=== PATIENT | female | born 1975 | race Caucasian/White ===

== ENCOUNTER 2016-05-28 17:57 | Emergency (ER) | payer OTHER ==
[~2016-05-28] VITALS: Ht 170.2 cm; Wt 85.0 kg
[2016-05-28 18:02] VITALS: BP 131/78; PULSE 101; RESP 15; TEMP 98.2; O2SAT 98
[2016-05-28] MEDS ORDERED: BENA25TA3 PO (19:27)
[2016-05-28] MEDS ORDERED: METF1000 PO (19:27)
--- NOTE | 2016-05-28 19:49 | PD ---
HPI Chief Complaint: Related Problem Time Seen by Provider: 19:49 Travel History International Travel<30 days: No Contact w/Intl Traveler<30days: No Traveled to known affect area: No History of Present Illness HPI 40-year-old female presents to the emergency Department with complaint of extensive vaginal bleeding that started this morning. She is 8 weeks and she has been having spotting since Monday. This is her second and her last ended in miscarriage at approximately 2 months. Reports abdominal cramping that started this morning. Reports nausea but is unchanged from nausea during . Reports dizziness with standing. Denies dysuria. She had an ultrasound last Monday while she was in [facility] with a positive heartbeat and positive intrauterine . She was not having any problems at that time, she just wanted to have the baby checked out and make sure that everything was going well. 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 Barton, in [place]. She has not taken any medications to alleviate pain. Has history of PCO as. Is on metformin. Allergies to milk. Primary care provider is Dr. Nery Veliz in [place]. No other modifying factors or associated signs and symptoms. PFSH Past Medical History Diminished Hearing: No Medical other: Yes (PCOS) ?: LMP: 8 weeks ago Dilation and Curettage (D&C): Yes Past Surgical History Cholecystectomy: Yes Oral Surgery: Yes Family History Family Hypercholesterolemia: Yes (dad) Social History Alcohol Use: No Tobacco Use: No (quit 19 yrs ago) Substance Use: No Allergies-Medications (Allergen,Severity, Reaction): Coded Allergies: Milk (Verified Adverse Reaction, Intermediate, itchy, watery eyes, 05/28/16 ) Reported Meds & Prescriptions Reported Meds & Active Scripts Active Reported Benadryl Allergy (Diphenhydramine HCl) 25 Mg Tab 25 Mg PO DAILY PRN Metformin (Metformin HCl) 1,000 Mg Tab 1,000 Mg PO DAILY With a meal Review of Systems Except as stated in HPI: all other systems reviewed are Neg Physical Exam Narrative GENERAL: Well-nourished, well-developed female patient, in no acute distress SKIN: Warm and dry. HEAD: Atraumatic. Normocephalic. EYES: Pupils equal and round. No scleral icterus. No injection or drainage. ENT: Mucosa pink and moist. Airway patent. NECK: Trachea midline. CARDIOVASCULAR: Regular rate and rhythm. No murmur appreciated. RESPIRATORY: No accessory muscle use. Clear to auscultation. Breath sounds equal bilaterally. GASTROINTESTINAL: Abdomen soft, non-tender, nondistended. Hepatic and splenic margins not palpable. Bowel sounds are active 4 quadrants. PELVIC: Speculum exam reveals as open cervical os with large amount of dark red vaginal bleeding. Bimanual exam reveals open cervical os. MUSCULOSKELETAL: No obvious deformities. No clubbing. No cyanosis. No edema. NEUROLOGICAL: Awake and alert. Oriented 3. No obvious cranial nerve deficits. Motor grossly within normal limits. Normal speech. PSYCHIATRIC: Appropriate mood and affect; insight and judgment normal. Data Data Last Documented VS Vital Signs Date Time Temp Pulse Resp B/P Pulse Ox O2 Delivery O2 Flow Rate FiO2 05/28/16 18:02 98.2 101 15 131/78 98 Orders Complete Blood Count With Diff (05/28/16 19:38) Basic Metabolic Panel (Bmp) (05/28/16 19:38) Beta Hcg (Quant/Titer) (05/28/16 19:38) Urinalysis - C+S If Indicated (05/28/16 19:38) Ed Poc Ultrasound (05/28/16 ) Type And Screen (05/28/16 19:40) Us Pelvis (Ques Pr/Ect)W Trans (05/28/16 ) Sodium Chlor 0.9% 1000 Ml Inj (Ns 1000 M (05/28/16 20:45) MDM Medical Decision Making Medical Screen Exam Complete: Yes Emergency Medical Condition: Yes Medical Record Reviewed: Yes Differential Diagnosis Threatened miscarriage, miscarriage, vaginal bleeding Narrative Course 40-year-old female, 8 weeks , with vaginal bleeding. She started spotting on Monday. Excessive bleeding this morning. Second ; first ended in miscarriage. After the patient a medication for pain and nausea and she declined at this time. CBC, BMP, beta hCG, type and screen, urinalysis, ED urine , ED [id number] ultrasound ordered. 2100: Dr. Vogel assumed patient care at this time. See her note for final disposition. Stella Collier May 28, 2016 19:49
[2016-05-28] MEDS ORDERED: SODIUM CHLOR 0.9% 1000 ML INJ 1,000 ML IV ONE (20:45)
[2016-05-28 20:47] LABS: BASOPHIL % 0.4 % (0.0-2.0); EOSINOPHIL # 0.2 TH/MM3 (0-0.4); EOSINOPHIL % 1.7 % (0.0-4.0); HEMO FLAGS DIFF FINAL; LYMPH % 18.2 % (9.0-44.0); LYMPHOCYTE # 1.8 TH/MM3 (1.0-4.8); MEAN CELL VOLUME 85.5 FL (80.0-100.0); MEAN CORPUSCULAR HEMOGLOBIN 29.6 PG (27.0-34.0); MEAN CORPUSCULAR HGB CONC 34.7 % (32.0-36.0); NEUT % 70.7 % (16.0-70.0); PLATELET COUNT 249 TH/MM3 (150-450); RED BLOOD COUNT 5.14 MIL/MM3 (4.00-5.30); RED CELL DISTRIBUTION WIDTH 12.3 % (11.6-17.2); WHITE BLOOD COUNT 9.9 TH/MM3 (4.0-11.0)
[2016-05-28 21:05] LABS: PH, URINE 5.5 (5.0-8.5); URINE COLOR RED (YELLW/STRAW)
[2016-05-28 21:06] LABS: BLOOD, URINE LARGE (NEG); GLUCOSE,URINE NEG (NEG); KETONE, URINE TRACE mg/dL (NEG); NITRITE,URINE NEG (NEG)
[2016-05-28 21:07] LABS: BICARBONATE 27.4 MEQ/L (21.0-32.0); POTASSIUM 3.6 MEQ/L (3.5-5.1)
[2016-05-28 21:07] LABS: BACTERIA, URINE FEW /hpf; COMMENT (UR) CULTURE INDICATED; CULTURE IF INDICATED CULTURE INDICATED
[2016-05-28] MEDS ORDERED: ACETAMINOPHEN 325 MG TAB PO ONE (21:30)
--- NOTE | 2016-05-28 22:49 | RADRPT ---
EXAM DATE/TIME: 05/28/2016 22:09 [facility] COMPARISON: No previous studies available for comparison. INDICATIONS : Bleeding with . LAB(S): Beta-hC MEDICAL HISTORY : . Polycystic ovarian syndrome. Miscarriage. SURGICAL HISTORY : Cholecystectomy. Left knee surgery. Dilation and curettage. Herniated disc repair. ENCOUNTER: Initial ACUITY: 1 day PAIN SCORE: 5/10 LOCATION: Bilateral pelvis MEASUREMENTS: UTERUS: 9.7 x 7.7 x 5.9 cm ENDOMETRIAL STRIPE: >20 mm RIGHT OVARY: 2.1 x 1.7 x 1.7 cm LEFT OVARY: 2.8 x 2.1 x 2.3 cm FREE FLUID: None CROWN RUMP LENGTH: Non visualized. = WKS DAYS FHR: Non visualized. BPM FINDINGS: UTERUS: Uterus has thickened endometrium. No gestational sac. Retroverted uterus with leiomyoma measuring 38 x 37 x 31 mm. RIGHT OVARY: Ovary contains no mass or significant cystic lesion. LEFT OVARY: Ovary contains no mass or significant cystic lesion. MISCELLANEOUS: No free fluid. CONCLUSION: 1. Endometrium with leiomyoma. 2. Intrauterine not visualized. No ectopic seen but still not excluded. Hugo Lerner MD on May 28, 2016 at 22:46 Board Certified Radiologist. This report was verified electronically.
[2016-05-28] MEDS ORDERED: TRAM50TA PO (23:42)
--- NOTE | 2016-05-28 23:42 | PD ---
Physical Exam Narrative I, Dr. Schroeder, have reviewed the advance practice practitioner's documentation and am in agreement, met with the patient face to face, made the diagnosis, and the medical decision making was done by me. *My assessment and Findings: Patient is a 40-year-old female approximately 8 weeks who comes in because of vaginal bleeding. She had an ultrasound performed at her doctor's office last week that showed an IUP. She had a miscarriage about the same time and her previous last year. She is complaining of lower abdominal cramping. Exam shows that her os is open and there is active bleeding. Data Data Last Documented VS Vital Signs Date Time Temp Pulse Resp B/P Pulse Ox O2 Delivery O2 Flow Rate FiO2 05/28/16 18:02 98.2 101 15 131/78 98 Orders Complete Blood Count With Diff (05/28/16 19:38) Basic Metabolic Panel (Bmp) (05/28/16 19:38) Beta Hcg (Quant/Titer) (05/28/16 19:38) Urinalysis - C+S If Indicated (05/28/16 19:38) Ed Poc Ultrasound (05/28/16 ) Type And Screen (05/28/16 19:40) Sodium Chlor 0.9% 1000 Ml Inj (Ns 1000 M (05/28/16 20:45) Urine Culture (05/28/16 19:10) Acetaminophen (Tylenol) (05/28/16 21:30) Us Pelvis (Ques Preg/Ectopic) (05/28/16 ) Tramadol (Ultram) (05/29/16 00:00) Labs Laboratory Tests Test 05/28/16 05/28/16 19:10 19:20 Urine Color RED Urine Turbidity CLOUDY Urine pH 5.5 Urine Specific [place] 1.025 Urine Protein 100 mg/dL Urine Glucose (UA) NEG mg/dL Urine Ketones TRACE mg/dL Urine Occult Blood LARGE Urine Nitrite NEG Urine Bilirubin NEGATIVE Urine Urobilinogen LESS THAN 2.0 MG/DL Urine Leukocyte Esterase SMALL Urine RBC /hpf Urine WBC 20 /hpf Urine Bacteria FEW /hpf Microscopic Urinalysis Comment CULTURE INDICATED White Blood Count 9.9 TH/MM3 Red Blood Count 5.14 MIL/MM3 Hemoglobin 15.2 GM/DL Hematocrit 44.0 % Mean Corpuscular Volume 85.5 FL Mean Corpuscular Hemoglobin 29.6 PG Mean Corpuscular Hemoglobin 34.7 % Concent Red Cell Distribution Width 12.3 % Platelet Count 249 TH/MM3 Mean Platelet Volume 9.3 FL Neutrophils (%) (Auto) 70.7 % Lymphocytes (%) (Auto) 18.2 % Monocytes (%) (Auto) 9.0 % Eosinophils (%) (Auto) 1.7 % Basophils (%) (Auto) 0.4 % Neutrophils # (Auto) 7.0 TH/MM3 Lymphocytes # (Auto) 1.8 TH/MM3 Monocytes # (Auto) 0.9 TH/MM3 Eosinophils # (Auto) 0.2 TH/MM3 Basophils # (Auto) 0.0 TH/MM3 CBC Comment DIFF FINAL Differential Comment Sodium Level 140 MEQ/L Potassium Level 3.6 MEQ/L Chloride Level 103 MEQ/L Carbon Dioxide Level 27.4 MEQ/L Anion Gap 10 MEQ/L Blood Urea Nitrogen 10 MG/DL Creatinine 0.84 MG/DL Estimat Glomerular Filtration 75 ML/MIN Rate Random Glucose 90 MG/DL Calcium Level 8.6 MG/DL Human Chorionic Gonadotropin, 8453 MIU/ML Quant Blood Type O POSITIVE Antibody Screen NEGATIVE Blood Bank Comment MDM Supervised Visit with [facility]: Yes Narrative Course Labs sent show a beta hCG of 8400. She is Rh+. Ultrasound shows likely completed . Patient reports she feels that the bleeding has slowed down. She is given Tylenol for pain and IV fluids. Patient informed of the results. She goes back to [place] on Monday. 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 Advised to return to the ED at any time for any worsening symptoms. Given prescription for tramadol for any worsening pain. Diagnosis Primary Impression: Complete Patient Instructions: General Instructions, Miscarriage (ED) Additional Instruction: Follow up with your OB when you get home. You can take Tylenol or Ibuprofen for pain. You can take a Tramadol if the pain is more severe. Return to the ED as needed for any worsening symptoms. Scripts Tramadol 50 Mg Tab50 Mg PO Q6H PRN (PAIN) #10 TAB Ref 0 Prov:Esther Schroeder MD 05/28/16 Disposition: DISCHARGE HOME Condition: Stable Esther Schroeder MD May 28, 2016 23:42
[2016-05-29] MEDS ORDERED: traMADol HCL 50 MG TAB PO ONE
== END 2016-05-29 00:38 | disposition home or self-care (01) ==
LOC: NEPA 17:57
DX: O03.9 Complete or unspecified spontaneous abortion without complication (principal); O09.521 Supervision of elderly multigravida, first trimester; R82.90 Unspecified abnormal findings in urine; E28.2 Polycystic ovarian syndrome; Z3A.08 8 weeks gestation of pregnancy; Z87.891 Personal history of nicotine dependence
CPT/HCPCS: 76700; 80048; 81001; 84702; 84703; 85025; 86850; 86900; 86901; 87086; 96360; 99284; J7030